=== PATIENT | female | born 1995 | race Caucasian/White ===

== ENCOUNTER 2018-08-03 14:14 | Emergency (ER) | payer OTHER, BC, MEDICAID ==
[~2018-08-03] VITALS: Ht 160 cm; Wt 54.4 kg
[2018-08-03 14:14] VITALS: BP 108/72
[2018-08-03] MEDS ORDERED: Naloxone 1mg/ml 2ml IVP ONE (14:45)
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
[2018-08-03 15:27] LABS: BASOPHILS % (AUTO) 0.9 % (0.0-2.0); HEMATOCRIT 39.9 % (37.0-47.0); HEMOGLOBIN 13.2 G/DL (12.0-16.0); LYMPHOCYTES % (AUTO) 30.4 % (20.0-45.0); MEAN CORPUSCULAR VOLUME 81 FL (80-99); MONOCYTES % (AUTO) 7.3 % (1.0-10.0); NEUTROPHILS % (AUTO) 50.5 % (45.0-75.0); PLATELET COUNT 209 K/UL (150-450); RED BLOOD COUNT 4.93 M/UL (4.20-5.40); RED CELL DISTRIBUTION WIDTH 11.7 % (11.6-14.8)
[2018-08-03 15:36] LABS: APPEARANCE,URINE CLEAR; BILIRUBIN, URINE NEGATIVE (NEGATIVE); GLUCOSE, URINE (UA) NEGATIVE (NEGATIVE); KETONES,URINE NEGATIVE (NEGATIVE); LEUKOCYTE ESTERASE ,URINE 1+ (NEGATIVE); NITRITE,URINE NEGATIVE (NEGATIVE); PH,URINE 7 (4.5-8.0); PROTEIN,URINE 2+ (NEGATIVE); UROBILINOGEN,URINE 1 MG/DL (0.0-1.0)
[2018-08-03 15:38] LABS: COLOR,URINE YELLOW
[2018-08-03 16:07] LABS: ANION GAP 7 mmol/L (5-15); BLOOD UREA NITROGEN 9 mg/dL (7-18); CALCIUM 9.1 MG/DL (8.5-10.1); CARBON DIOXIDE 27 MMOL/L (21-32); CHLORIDE 105 MMOL/L (98-107); CREATININE 0.7 MG/DL (0.55-1.30); POTASSIUM 3.9 MMOL/L (3.5-5.1); SODIUM 139 MMOL/L (136-145)
[2018-08-03 16:11] LABS: ALANINE AMINOTRANSFERASE 31 U/L (12-78); ALBUMIN 3.4 G/DL (3.4-5.0); ALKALINE PHOSPHATASE 55 U/L (46-116); ASPARTATE AMINO TRANSFERASE 26 U/L (15-37); BILIRUBIN,TOTAL 0.5 MG/DL (0.2-1.0)
--- NOTE | 2018-08-03 16:23 | Diagnostic Imaging Report ---
Indication: Shortness of breath Technique: One view of the chest Comparison: none Findings: Lungs and pleural spaces are clear. Heart size is normal Impression: No acute process
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
[2018-08-03 16:46] VITALS: BP 121/64
[2018-08-03 18:15] VITALS: BP 102/77
[2018-08-03 19:17] VITALS: BP 102/77
== END 2018-08-03 21:30 ==
LOC: EDBD 14:14 → EMR 15:30
DX: F13.10 Sedative, hypnotic or anxiolytic abuse, uncomplicated (principal); R40.0 Somnolence
CPT/HCPCS: 36415; 70450; 71045; 80053; 80307; 81003; 81025; 82140; 85025; 86703; 86803; 87340; 96374; 99284; G0480; J2310; 80329

== ENCOUNTER 2018-10-05 11:28 | Emergency (ER) | payer BC, MEDICAID ==
[~2018-10-05] VITALS: Ht 160 cm; Wt 45.4 kg
[2018-10-05] MEDS ORDERED: ALBUTEROL SULF8.5 GM INH (11:40)
--- NOTE | 2018-10-05 11:41 | Emergency Room Report ---
History of Present Illness General Chief Complaint: Dyspnea/Respdistress Present Illness HPI 23F c/o sob about a day. Typically would use inhaler but ran out a long time ago. Last doctor visit for same about a year, does not recall prednisone use and no history of intubation. No fever, mild occasional cough. Pt. is a daily IV heroin user. PMH: asthma Meds: none Allergies: Coded Allergies: UNABLE TO ASSESS (Unverified , 08/03/18) ALOC Review of Systems Constitutional: Reports: see HPI Eye: Reports: no symptoms ENT: Reports: no symptoms Respiratory: Reports: see HPI, cough, shortness of breath Cardiovascular: Reports: see HPI Gastrointestinal: Reports: no symptoms Genitourinary: Reports: no symptoms Musculoskeletal: Reports: no symptoms Skin: Reports: no symptoms Psychiatric: Reports: no symptoms Neurological: Reports: no symptoms Endocrine: Reports: no symptoms Hematologic/Lymphatic: Reports: no symptoms Allergic: Reports: no symptoms All Other Systems: negative except mentioned in HPI Physical Exam Sp02 EP Interpretation: reviewed, normal General Appearance: normal inspection, alert, GCS 15, severe distress Head: normocephalic, atraumatic Eyes: bilateral eye normal inspection, bilateral eye PERRL, bilateral eye EOMI ENT: normal ENT inspection, hearing grossly normal, normal pharynx, no angioedema, normal voice, moist mucus membranes Neck: normal inspection, full range of motion, supple, no meningismus, no bony tend Respiratory: respiratory distress, decreased breath sounds, accessory muscle use, wheezing, chest symmetrical Cardiovascular #1: normal inspection, no edema, tachycardia Gastrointestinal: normal inspection, normal bowel sounds, non tender, soft, no mass, non-distended Musculoskeletal: gait/station normal, normal range of motion Neurologic: normal inspection, alert, oriented x3, responsive, motor strength/ tone normal Psychiatric: normal inspection, judgement/insight normal, memory normal Suicide Risk Assessment: Suicidal Ideation: No Had intent to initiate attempt: No Pt's plan for suicide attempt: No Has means to complete attempt: No Skin: normal color, warm/dry, 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 We tried >20 times. Unsuccessful however during last attempt, pt. was so uncomfortable she vagal-ed and self-converted to sinus tachy. Nebs ordered, Solu-Medrol will be given IM and labs cancelled. It is possible that patient may improve sufficiently for d/c. If she needs admission will request PICC line. 130: pt. is dramatically improved. I think the SVT/tachycardic rate triggered bronchospasm. improved from nebs but such dramatic improvement (clear lungs) I think tachycardia was also the problem. There is no suggestion of (heroin related) pulmonary edema. Clear lungs, CXR unremarkable. OK for discharge CRITICAL CARE NOTE: The patient was at risk for respiratory and cardiac failure and required aggressive intervention by me. Critical care time provided by me, excluding other separately billable procedures exceeded 35 minutes. This time included: Obtaining history from: patient Examination of the patient Development of treatment plan Ordering and reviewing diagnostic test results Discussion of treatment plan with patient Coordinating care with nursing and respiratory therapy Supervising IV medications Multiple reassessments Discussion with the admitting physician EKG Diagnostic Results EKG Time: 11:38 EP Interpretation: severe tachy 188 no definite p waves; suspect SVT Rate: tachycardiac ST Segments: other Rhythm Strip Diag. Results Rhythm Strip Time: 11:40 EP Interpretation: yes Rate: tachy 185 Status: improved Disposition: HOME, SELF-CARE Scripts Albuterol Sulfate* (ALBUTEROL SULFATE MDI*) 8.5 Gm Hfa.aer.ad 2 PUFF INH Q4H PRN for cough/wheezing, #1 EA 0 Refills Prov: Mathew Zaragoza M.D. 10/05/18 Patient Instructions: Asthma, Adult, [id number], Paroxysmal Supraventricular Tachycardia Mathew Zaragoza M.D. Oct 05, 2018 11:41
[2018-10-05] MEDS ORDERED: Albuterol ud Inhalation HHN SCH (11:45)
[2018-10-05] MEDS: Adenosine 6mg/2ml Inj IVP ONE ×2 (11:45→12:04)
[2018-10-05] MEDS ORDERED: Solu-MEDROL 125mg Inj IVP ONE (11:45)
[2018-10-05] MEDS ORDERED: Levalbuterol Inh UD 1.25mg/0.5ml HHN ONE (12:00)
[2018-10-05 12:12] VITALS: BP 128/81
--- NOTE | 2018-10-05 14:03 | Diagnostic Imaging Report ---
Indication: Chest pain Comparison: 08/03/2018 A single view chest radiograph was obtained. Findings: Cardiomediastinal appearance is within normal limits for age. The lungs are clear. Pulmonary vascularity is appropriate. The diaphragmatic contour is smooth and costophrenic angles are sharp. No pleural effusions are identified. The bones are unremarkable. Impression: No acute findings
[2018-10-05 14:46] VITALS: BP 103/74
== END 2018-10-05 14:45 | disposition home or self-care (01) ==
LOC: EMR 12:15
DX: I47.1 Supraventricular tachycardia (principal); J45.909 Unspecified asthma, uncomplicated
CPT/HCPCS: 71045; 93005; 94640; 94664; 96374; 99291; J2930; J7644